=== PATIENT | female | born 1970 | race Two or more races ===

== ENCOUNTER → 2018-01-08 | Outpatient (REF) | payer OTHER ==
[~2018-01-08] MED LIST: CETI-176 PO; CETI5TAB22 PO; ESCI5TAB10 PO; FERR324T16 PO; LOR5 PO; METF-410 PO; MULTIVIT; OMEP-218 PO
== END ==
LOC: ZZSENDIN 12:00
PROVIDERS: ATTEND Student in an Organized Health Care Education/Training Program
DX: C54.1 Malignant neoplasm of endometrium (principal)
CPT/HCPCS: 88305

== ENCOUNTER 2018-01-15 17:23 | Inpatient (IN) | payer SELFPAY ==
[~2018-01-15] VITALS: Ht 162.6 cm; Wt 103.9 kg
[~2018-01-15 17:23] MED LIST changes: -CETI-176 PO; -FERR324T16 PO; -METF-410 PO
[2018-01-15] MEDS ORDERED: METF-410 PO (17:39)
[2018-01-15] MEDS ORDERED: FERR324T16 PO (17:39)
[2018-01-15] MEDS ORDERED: CETI-176 PO (17:40)
[2018-01-15] MEDS ORDERED: OMEP-218 PO (17:40)
--- NOTE | 2018-01-15 17:43 | ER Report ---
History and Physical Time Seen By MD: 17:42 Hx. of Stated Complaint: Pt recently diagnosed with uterine cancer. Pt experiencing sob. HPI/ROS CHIEF COMPLAINT: short of breath, abdominal distension and discomfort HISTORY OF PRESENT ILLNESS: This is a 47 year old female. She was sent to the hospital ER from the [facility]. She is short of breath, with a cough, and was 75% on room air. She has recently been diagnosed with endometrial cancer with ongoing vaginal bleeding and anemia. Also with recent diagnosis of diabetes. She is not having fevers. She denies chest pain, but feel tight. [facility] reports orthostatic hypotension as well. She is getting dizzy with position change. Has abdominal distension and discomfort. She denies nausea or vomiting. Normal bowel movements. No dysuria. Having vaginal bleeding as well as some discharge. REVIEW OF SYSTEMS: Constitutional: As above. Eyes: No vision changes. ENT: No sore throat. No congestion. Cardiovascular: As above. Respiratory: As above. Gastrointestinal: As above. Genitourinary: As above. Musculoskeletal: No muscle or joint pain. Skin: No rashes. Neurological: Generalized, but no focal weakness. No headache. Allergies: Coded Allergies: Penicillins (Verified Allergy, Intermediate, HIVES, 01/15/18) Sulfa (Sulfonamide Antibiotics) (Verified Allergy, Intermediate, "hives", 01/15/18) amoxicillin (Verified Allergy, Intermediate, HIVES, 01/15/18) cephalexin (Verified Allergy, Intermediate, HIVES, 01/15/18) clarithromycin (Verified Allergy, Intermediate, HIVES, 01/15/18) Uncoded Allergies: ENVIRONMENTAL ALLERGIES (Allergy, Mild, 07/05/08) Home Meds Reported Medications Cetirizine Hcl (ZYRTEC) 10 Mg Tablet, 10 MG PO QDAY, TAB 01/15/18 Omeprazole Magnesium (PRILOSEC OTC) 20 Mg Tablet.dr, 1 TAB PO QDAY, TAB 01/15/18 Ferrous Sulfate (FERROUS SULFATE) 324 Mg Tablet.dr, 324 MG PO QDAY 01/15/18 Metformin Hcl (METFORMIN HCL) 500 Mg Tablet, 1 TAB PO BID, TAB 01/15/18 Discontinued Reported Medications Acetaminophen/Hydrocodone (Lortab 5/500) 5 Mg/500 Mg Tab, 1 - 2 EA PO Q4H, 0 Refills 07/05/08 Escitalopram Oxalate (Lexapro) 5 Mg Tablet, 5 MG PO QODAY, 0 Refills 07/05/08 Cetirizine Hcl (Zyrtec) 5 Mg Tablet, 5 MG PO 07/05/08 [Multivit] No Conflict Check 07/05/08 Omeprazole Magnesium (Prilosec Otc) 20 Mg Tablet.dr, 20 MG PO QDAY 07/05/08 Reviewed Nurses Notes: Yes Hx Substance Use Disorder: No Hx Alcohol Use: No Constitutional Vital Sign - Last 24 Hours 01/15/18 01/15/18 01/15/18 01/15/18 17:29 17:31 17:35 17:38 Temp 97.8 Pulse 100 92 Resp 20 B/P (MAP) 136/63 136/63 (87) Pulse Ox 83 94 O2 Delivery Room Air O2 Flow Rate 3.0 01/15/18 01/15/18 01/15/18 01/15/18 17:53 18:00 18:08 18:23 Pulse 89 88 85 Resp 19 30 26 B/P (MAP) 118/63 (81) Pulse Ox 93 91 91 01/15/18 01/15/18 01/15/18 01/15/18 18:28 18:30 18:43 18:58 Pulse 87 ??? 95 Resp 21 14 B/P (MAP) 126/56 (79) Pulse Ox 90 93 01/15/18 01/15/18 01/15/18 01/15/18 19:00 19:13 19:28 19:30 Pulse 88 88 Resp 12 19 B/P (MAP) 111/81 (91) 121/66 (84) Pulse Ox 96 94 01/15/18 01/15/18 01/15/18 01/15/18 19:43 19:58 20:00 20:13 Pulse 90 91 90 Resp 20 40 40 B/P (MAP) 101/66 (78) Pulse Ox 92 95 92 01/15/18 01/15/18 01/15/18 01/15/18 20:13 20:28 20:30 20:43 Pulse 90 95 94 Resp 40 8 25 B/P (MAP) 118/70 (86) Pulse Ox 92 93 91 Physical Exam General Appearance: The patient is alert. Short of breath, on oxygen by nasal canula. No acute distress, but ill appearing. Eyes: Pupils are equal, round. No pallor, injection or icterus. ENT: Mucous membranes are moist. Normal oral mucosa. Posterior oropharynx is normal. Neck: Supple and non tender. Respiratory: Lungs are clear to auscultation. There are no retractions or accessory muscle use. Cardiovascular: Tachycardia, but a regular rhythm. No murmurs, gallops or rubs. Normal capillary refill. Gastrointestinal: Abdomen is soft, but has diffuse discomfort, no focal tenderness. Normal active bowel sounds. No costovertebral angle tenderness with percussion. Neurological: Alert and oriented x3. No focal neurologic deficits Skin: Warm and dry. Musculoskeletal: Extremities are nontender. No tenderness in palpation of the cervical, thoracic and lumbar spine. DIFFERENTIAL DIAGNOSIS: After history and physical exam, differential diagnosis was considered for patient with new onset shortness of breath and hypoxia, with her new diagnosis of endometrial cancer, would be concerned about pulmonary embolism. Also with anemia, anemia could be causing shortness of breath as well. Concern for pulmonary infectious process as well. Also noting abdominal fullness and tenderness. Based on endometrial cancer, we'll go ahead and get a CT scan of the abdomen as well to look for causes of these symptoms. Medical Decision Making Data Points Result Diagram: 01/15/18 1745 01/15/18 1745 Laboratory Hematology Test 01/15/18 17:45 01/15/18 19:50 Red Blood Count 5.39 M/uL (4.17-5.56) Mean Corpuscular Volume 66.3 fL (80.0-96.0) Mean Corpuscular Hemoglobin 19.7 pg (26.0-33.0) Mean Corpuscular Hemoglobin Concent 29.7 g/dL (32.0-36.0) Red Cell Distribution Width 20.2 % (11.5-14.5) Mean Platelet Volume 8.8 fL (7.2-11.1) Neutrophils (%) (Auto) 89.6 % (39.4-72.5) Lymphocytes (%) (Auto) 6.2 % (17.6-49.6) Monocytes (%) (Auto) 3.8 % (4.1-12.4) Eosinophils (%) (Auto) 0.0 % (0.4-6.7) Basophils (%) (Auto) 0.4 % (0.3-1.4) Nucleated RBC Relative Count (auto) 0.0 /100WBC Neutrophils # (Auto) 20.8 K/uL (2.0-7.4) Lymphocytes # (Auto) 1.4 K/uL (1.3-3.6) Monocytes # (Auto) 0.9 K/uL (0.3-1.0) Eosinophils # (Auto) 0.0 K/uL (0.0-0.5) Basophils # (Auto) 0.1 K/uL (0.0-0.1) Nucleated RBC Absolute Count (auto) 0.01 K/uL Peripheral Blood Smear Yes Y/N Prothrombin Time 16.0 seconds (12.0-14.4) Prothromb Time International Ratio 1.26 Activated Partial Thromboplast Time 30 seconds (23-35) Sodium Level 131 mmol/L (137-145) Potassium Level 5.3 mmol/L (3.5-5.0) Chloride Level 95 mmol/L (98-107) Carbon Dioxide Level 15 mmol/L (22-31) Blood Urea Nitrogen 23 mg/dl (7-18) Creatinine 1.00 mg/dl (0.52-1.04) Glomerular Filtration Rate Calc 59.7 Random Glucose 569 mg/dl (75-110) Calcium Level 8.9 mg/dl (8.4-10.2) Total Bilirubin 0.7 mg/dl (0.2-1.3) Aspartate Amino Transf (AST/SGOT) 18 U/L (0-35) Alanine Aminotransferase (ALT/SGPT) 22 U/L (0-56) Alkaline Phosphatase 255 U/L (0-126) Total Protein 6.8 gm/dl (6.3-8.2) Albumin 3.8 g/dl (3.5-5.0) Acetone, Qualitative Negative Urine Color Yellow Urine Clarity Cloudy Urine pH 5.0 pH (4.8-9.5) Urine Specific [place] 1.029 Urine Protein 30 mg/dL (NEGATIVE) Urine Glucose (UA) 500 mg/dL (NEGATIVE) Urine Ketones Trace mg/dL (NEGATIVE) Urine Blood Large (NEGATIVE) Urine Nitrite Negative (NEGATIVE) Urine Bilirubin Negative (NEGATIVE) Urine Urobilinogen Negative mg/dL (0.2-1.9) Urine Leukocyte Esterase Large (NEGATIVE) Urine RBC 300 /HPF (0-2/HPF) Urine WBC 135 /HPF (0-5/HPF) Urine Squamous Epithelial Cells Many /LPF (</=FEW) Urine Bacteria Negative /HPF (NONE-FEW) Urine Hyaline Casts Few /LPF (NONE-FEW) Urine Mucus Few /HPF (NONE-FEW) Chemistry Test 01/15/18 17:45 01/15/18 19:50 White Blood Count 23.2 k/uL (4.5-11.0) Red Blood Count 5.39 M/uL (4.17-5.56) Hemoglobin 10.6 g/dL (12.0-16.0) Hematocrit 35.7 % (34.0-47.0) Mean Corpuscular Volume 66.3 fL (80.0-96.0) Mean Corpuscular Hemoglobin 19.7 pg (26.0-33.0) Mean Corpuscular Hemoglobin Concent 29.7 g/dL (32.0-36.0) Red Cell Distribution Width 20.2 % (11.5-14.5) Platelet Count 146 K/uL (150-450) Mean Platelet Volume 8.8 fL (7.2-11.1) Neutrophils (%) (Auto) 89.6 % (39.4-72.5) Lymphocytes (%) (Auto) 6.2 % (17.6-49.6) Monocytes (%) (Auto) 3.8 % (4.1-12.4) Eosinophils (%) (Auto) 0.0 % (0.4-6.7) Basophils (%) (Auto) 0.4 % (0.3-1.4) Nucleated RBC Relative Count (auto) 0.0 /100WBC Neutrophils # (Auto) 20.8 K/uL (2.0-7.4) Lymphocytes # (Auto) 1.4 K/uL (1.3-3.6) Monocytes # (Auto) 0.9 K/uL (0.3-1.0) Eosinophils # (Auto) 0.0 K/uL (0.0-0.5) Basophils # (Auto) 0.1 K/uL (0.0-0.1) Nucleated RBC Absolute Count (auto) 0.01 K/uL Peripheral Blood Smear Yes Y/N Prothrombin Time 16.0 seconds (12.0-14.4) Prothromb Time International Ratio 1.26 Activated Partial Thromboplast Time 30 seconds (23-35) Glomerular Filtration Rate Calc 59.7 Calcium Level 8.9 mg/dl (8.4-10.2) Total Bilirubin 0.7 mg/dl (0.2-1.3) Aspartate Amino Transf (AST/SGOT) 18 U/L (0-35) Alanine Aminotransferase (ALT/SGPT) 22 U/L (0-56) Alkaline Phosphatase 255 U/L (0-126) Total Protein 6.8 gm/dl (6.3-8.2) Albumin 3.8 g/dl (3.5-5.0) Acetone, Qualitative Negative Urine Color Yellow Urine Clarity Cloudy Urine pH 5.0 pH (4.8-9.5) Urine Specific [place] 1.029 Urine Protein 30 mg/dL (NEGATIVE) Urine Glucose (UA) 500 mg/dL (NEGATIVE) Urine Ketones Trace mg/dL (NEGATIVE) Urine Blood Large (NEGATIVE) Urine Nitrite Negative (NEGATIVE) Urine Bilirubin Negative (NEGATIVE) Urine Urobilinogen Negative mg/dL (0.2-1.9) Urine Leukocyte Esterase Large (NEGATIVE) Urine RBC 300 /HPF (0-2/HPF) Urine WBC 135 /HPF (0-5/HPF) Urine Squamous Epithelial Cells Many /LPF (</=FEW) Urine Bacteria Negative /HPF (NONE-FEW) Urine Hyaline Casts Few /LPF (NONE-FEW) Urine Mucus Few /HPF (NONE-FEW) Coagulation Test 01/15/18 17:45 Prothrombin Time 16.0 seconds Prothromb Time International Ratio 1.26 Activated Partial Thromboplast Time 30 seconds Toxicology Test 01/15/18 17:45 Acetone, Qualitative Negative Urinalysis Test 01/15/18 19:50 Urine Color Yellow Urine Clarity Cloudy Urine pH 5.0 pH (4.8-9.5) Urine Specific [place] 1.029 Urine Protein 30 mg/dL (NEGATIVE) Urine Glucose (UA) 500 mg/dL (NEGATIVE) Urine Ketones Trace mg/dL (NEGATIVE) Urine Blood Large (NEGATIVE) Urine Nitrite Negative (NEGATIVE) Urine Bilirubin Negative (NEGATIVE) Urine Urobilinogen Negative mg/dL (0.2-1.9) Urine Leukocyte Esterase Large (NEGATIVE) Urine RBC 300 /HPF (0-2/HPF) Urine WBC 135 /HPF (0-5/HPF) Urine Squamous Epithelial Cells Many /LPF (</=FEW) Urine Bacteria Negative /HPF (NONE-FEW) Urine Hyaline Casts Few /LPF (NONE-FEW) Urine Mucus Few /HPF (NONE-FEW) EKG/Imaging EKG Interpretation 12 lead EKG: Rhythm: normal sinus rhythm, rate 90 [place]: normal QRS: normal ST segments: Nonspecific teeth flattening, no ST elevation or depression Imaging CT angiogram chest with contrast Indication: Shortness of breath, hypoxia and new diagnosis of endometrial cancer. Comparison: None available. Technique: Axial CT images are obtained through the chest after administration of 100 mL Isovue 370 IV contrast. Reformatted coronal and sagittal images were reviewed as well as coronal MIP images. One of the following dose optimization techniques was utilized in the performance of this exam: automated exposure control; adjustment of the mA and/ or kV according to the patient's size; or use of an iterative reconstruction technique. Specific details can be referenced in the facility's radiology CT exam operational policy. FINDINGS: Positive pulmonary emboli are present in the distal right main pulmonary artery extending into the segmental and subsegmental branches of the right lower lobe, right upper lobe and right middle lobe pulmonary arteries. The left sided, a arteries show a small amount of subsegmental emboli in the left lower lobe pulmonary arteries. Heart is upper limits normal for size without pericardial effusion. The left ventricle measures 4.4 cm and the right ventricle measures 4.9 cm. Aorta shows no aneurysm or dissection. The mediastinum and hilar regions show no enlarged lymph nodes or abnormal density. The lungs show mild dependent atelectasis. No consolidation, pleural effusion or pneumothorax. There is a 3 mm nodule in the right middle lobe on image #49. No other discrete nodules. Airways are clear. Bony structures show no acute fracture or discrete lesions. Chest wall shows no enlarged axillary lymph nodes or masses. Small amount of ascites. The upper abdomen is otherwise unremarkable. IMPRESSION: 1. Positive pulmonary emboli, right greater than left as described above. There may be mild right heart strain present. 2. Lungs show no acute abnormality. 3. 3 mm nodule in the right middle lobe. This too small characterize and could be postinflammatory. Suggest follow-up per Fleischner guidelines described below. I called report to WESLY GUEVARA at 01/15/2018 8:03 PM. Report Dictated By: Jim Gutierrez at 01/15/2018 7:[address] abdomen and pelvis with IV contrast Indication: Shortness breath, hypoxia and new diagnosis of endometrial carcinoma. Comparison: None available. . Technique: Axial CT images were obtained through the abdomen and pelvis during injection of nonionic iodinated intravenous contrast. Reformatted coronal and sagittal images were also obtained. One of the following dose optimization techniques was utilized in the performance of this exam: Automated exposure control; adjustment of the mA and/ or kV according to the patient's size; or use of an iterative reconstruction technique. Specific details can be referenced in the facility's radiology CT exam operational policy. Contrast: 100 ml of Isovue-370. IV contrast. Findings: Lower lung [place]: Bilateral pulmonary emboli are visualized mainly in the right side from the main right pulmonary artery into the segmental and subsegmental branches of the right lower lobe and small amount in the segmental and subsegmental branches of the left lower lobe. The apex of the right ventricle shows a question of a small 1.5 cm filling defect or nodule versus prominent ventricle. Liver: No focal parenchymal abnormality of the liver. Biliary: Gallbladder appears unremarkable as well as the intra and extra hepatic biliary system. Pancreas: Normal appearance. Spleen: Normal appearance. Adrenal glands: Unremarkable. Kidneys / retroperitoneum: No evidence of nephrolithiasis or hydronephrosis. Subcentimeter hypodensity in the right kidney is too small characterize and statistically tiny cyst. Bowel / peritoneum / mesenteries: Visualized gastrointestinal tract is within normal limits. The appendix is normal. Stomach is unremarkable. Small amount of ascites is present. No fluid collections, free air or areas of inflammation. Small umbilical hernia containing fat and some fluid. The central left abdomen does show a large heterogeneous mass measuring at least 18.7 x 21.1 x 14.7 cm. The right lower quadrant does show a heterogeneous mass measuring 6.9 x 5.7 cm. Both these masses do show heterogeneous enhancement. Lymph node assessment: No pathologic adenopathy identified. Pelvic structures: The endometrium is thickened, heterogeneous and irregular consistent patient's known endometrial carcinoma. The remaining pelvic structures visualized within normal limits. Vessels: No significant atherosclerotic calcifications seen throughout a nonaneurysmal abdominal aorta and branches. Musculoskeletal / Body wall: No acute or aggressive osseous abnormality. Bilateral pars defect L5 level causing mild anterior spondylolisthesis of L5 over S1 of 7 mm. IMPRESSION: 1. Large abdominal mass with a smaller mass in the right lower quadrant. 2. Abnormal endometrium consistent patient's known endometrial carcinoma. 3. Mild ascites. 4. Positive pulmonary emboli as described on the pulmonary angiogram done at same time. 5. Other chronic findings as above. 6.The apex of the right ventricle shows a question of a small 1.5 cm filling defect or nodule versus prominent ventricle. I called report to WESLY GUEVARA at 01/15/2018 8:04 PM. Report Dictated By: Jim Gutierrez at 01/15/2018 7:49 PM ED Course/Re-evaluation Clinical Indication for ER IV: Hydration, IV Access ED Course Reviewed lab results and imaging results with the patient. She has endometrial cancer, with masses and ascites in the abdomen. She has evidence of a urinary tract infection. She has new pulmonary embolism. Discussed with Dr. Agosto, and will admit to [facility] for further evaluation and management. Started on Lovenox in the ER. Will begin antibiotics on the floor. Decision to Disposition Date: Jan 15, 2018 Decision to Disposition Time: 20:31 Depart Departure Latest Vital Signs Vital Signs Date Time Temp Pulse Resp B/P (MAP) Pulse Ox O2 Delivery O2 Flow Rate FiO2 01/15/18 20:43 94 25 91 01/15/18 20:30 118/70 (86) 01/15/18 17:35 3.0 01/15/18 17:29 97.8 Room Air Impression: Primary Impression: Pulmonary embolism Additional Impressions: Urinary tract infection Endometrial cancer Condition: Condition Unchanged Disposition: Admitted from ER Referrals: [facility] MD (PCP) Problem Qualifiers Primary Impression: Pulmonary embolism Pulmonary embolism type: other Chronicity: acute Acute cor pulmonale presence: without acute cor pulmonale Qualified Codes: I26.99 - Other pulmonary embolism without acute cor pulmonale Additional Impressions: Urinary tract infection Urinary tract infection type: acute cystitis Hematuria presence: without hematuria Qualified Codes: N30.00 - Acute cystitis without hematuria WESLY GUEVARA MD Jan 15, 2018 17:43
[2018-01-15 18:08] LABS: INR 1.26; PLATELET COUNT, AUTOMATED 146 K/uL (150-450)
[2018-01-15] MEDS ORDERED: IOPAMIDOL 76% 100 ML INFUS BTL 100 ML ONE (18:30)
--- NOTE | 2018-01-15 18:51 | EKG ---
FACILITY: [facility] PATIENT NAME: NATALYA MAZA : [id number] MR: [id number] V: [id number] EXAM DATE: ORDERING PHYSICIAN: WESLY GUEVARA TECHNOLOGIST: KIMI Jiménez Reason : CARDIAC Blood Pressure : / mmHG Vent. Rate : 090 BPM Atrial Rate : 090 BPM P-R Int : 132 ms QRS Dur : 086 ms QT Int : 384 ms P-R-T Axes : 062 107 141 degrees QTc Int : 469 ms Normal sinus rhythm Possible Right ventricular hypertrophy Septal infarct , age undetermined T wave abnormality, consider lateral ischemia Abnormal ECG No previous ECGs available Confirmed by CASA LARA ([id number]) on 01/16/2018 6:33:23 AM Referred By: PAOLA Confirmed By:CASA LARA
--- NOTE | 2018-01-15 20:07 | RADIOLOGY IMAGING REPORT ---
FACILITY: [facility] [place] PATIENT NAME: Meggan Schroeder : 1970 MR: [id number] V: [id number] EXAM DATE: ORDERING PHYSICIAN: WESLY GUEVARA TECHNOLOGIST: Location: [facility] [place] Patient: Meggan Schroeder : 1970 Visit/Account:[id number] Date of Sevice: 01/15/2018 ADDENDUM #1 The apex of the right ventricle shows a question of a small 1.8 cm nodule/filling defect versus promi nent ventricle muscle. Report Dictated By: Jim Gutierrez at 01/15/2018 8:06 PM Report E-Signed By: Jim Gutierrez at 01/15/2018 8:[address] angiogram chest with contrast Indication: Shortness of breath, hypoxia and new diagnosis of endometrial cancer. Comparison: None available. Technique: Axial CT images are obtained through the chest after administration of 100 mL Isovue 370 I V contrast. Reformatted coronal and sagittal images were reviewed as well as coronal MIP images. One of the following dose optimization techniques was utilized in the performance of this exam: auto mated exposure control; adjustment of the mA and/or kV according to the patient's size; or use of an iterative reconstruction technique. Specific details can be referenced in the facility's radiology C T exam operational policy. FINDINGS: Positive pulmonary emboli are present in the distal right main pulmonary artery extending into the se gmental and subsegmental branches of the right lower lobe, right upper lobe and right middle lobe pul monary arteries. The left sided, a arteries show a small amount of subsegmental emboli in the left lo wer lobe pulmonary arteries. Heart is upper limits normal for size without pericardial effusion. The left ventricle measures 4.4 c m and the right ventricle measures 4.9 cm. Aorta shows no aneurysm or dissection. The mediastinum and hilar regions show no enlarged lymph nodes or abnormal density. The lungs show mild dependent atelectasis. No consolidation, pleural effusion or pneumothorax. There is a 3 mm nodule in the right middle lobe on image #49. No other discrete nodules. Airways are clear. Bony structures show no acute fracture or discrete lesions. Chest wall shows no enlarged axillary lym ph nodes or masses. Small amount of ascites. The upper abdomen is otherwise unremarkable. IMPRESSION: 1. Positive pulmonary emboli, right greater than left as described above. There may be mild right hea rt strain present. 2. Lungs show no acute abnormality. 3. 3 mm nodule in the right middle lobe. This too small characterize and could be postinflammatory. S uggest follow-up per Fleischner guidelines described below. I called report to WESLY GUEVARA at 01/15/2018 8:03 PM. FLEISCHNER SOCIETY FOLLOW-UP GUIDELINES FOR NEWLY DETECTED INCIDENTAL NODULES IN PERSONS 35 YEARS OF AGE OR OLDER. *THESE RECOMMENDATIONS DO NOT APPLY TO LUNG CANCER SCREENING, PATIENTS WITH IMMUNOSUPPRESSION , OR PA TIENTS WITH KNOWN PRIMARY MALIGNANCY. SOLITARY SOLID NODULES If nodule size is less than 6 mm: Low risk patient - no follow up needed High risk patient - Optional CT at 12 months. If nodule size is 6-8 mm: Low risk patient - follow up CT at 6-12 months, then consider CT at 18-24 months if no change. High risk patient - follow up CT at 6-12 months, then CT at 18-24 months if no change. If nodule size is greater than 8 mm: Low risk patient - Consider CT at 3, 9 months, and 24 months; or PET/CT, or tissue sampling, or a com bination thereof. High risk patient - Consider CT at 3, 9 months, and 24 months; or PET/CT, or tissue sampling, or a co mbination thereof. LOW RISK PATIENT: Minimal or absent history of tobacco use and of other known risk factors. HIGH RISK PATIENT: Tobacco use, family history of lung cancer, upper pulmonary lobe location of nodul e, presence of emphysema, pulmonary fibrosis, older age. Kai H, Malika DP, Emily JM, et al. Guidelines for Management of Incidental Pulmonary Nodules Dete cted on CT Images: From the Fleischner Society 2017. Radiology. Report Dictated By: Jim Gutierrez at 01/15/2018 7:40 PM Report E-Signed By: Jim Gutierrez at 01/15/2018 8:04 PM WSN:[id number]
--- NOTE | 2018-01-15 20:11 | RADIOLOGY IMAGING REPORT ---
FACILITY: [facility] - [place] PATIENT NAME: Meggan Schroeder : 1970 MR: [id number] V: [id number] EXAM DATE: ORDERING PHYSICIAN: WESLY GUEVARA TECHNOLOGIST: Location: [facility] - [place] Patient: Meggan Schroeder : 1970 Visit/Account:[id number] Date of Sevice: 01/15/2018 CT abdomen and pelvis with IV contrast Indication: Shortness breath, hypoxia and new diagnosis of endometrial carcinoma. Comparison: None available. . Technique: Axial CT images were obtained through the abdomen and pelvis during injection of nonioni c iodinated intravenous contrast. Reformatted coronal and sagittal images were also obtained. One of the following dose optimization techniques was utilized in the performance of this exam: Autom ated exposure control; adjustment of the mA and/or kV according to the patient's size; or use of an i terative reconstruction technique. Specific details can be referenced in the facility's radiology C T exam operational policy. Contrast: 100 ml of Isovue-370. IV contrast. Findings: Lower lung worley: Bilateral pulmonary emboli are visualized mainly in the right side from the main r ight pulmonary artery into the segmental and subsegmental branches of the right lower lobe and small amount in the segmental and subsegmental branches of the left lower lobe. The apex of the right ventr icle shows a question of a small 1.5 cm filling defect or nodule versus prominent ventricle. Liver: No focal parenchymal abnormality of the liver. Biliary: Gallbladder appears unremarkable as well as the intra and extra hepatic biliary system. Pancreas: Normal appearance. Spleen: Normal appearance. Adrenal glands: Unremarkable. Kidneys / retroperitoneum: No evidence of nephrolithiasis or hydronephrosis. Subcentimeter hypodensit y in the right kidney is too small characterize and statistically tiny cyst. Bowel / peritoneum / mesenteries: Visualized gastrointestinal tract is within normal limits. The appe ndix is normal. Stomach is unremarkable. Small amount of ascites is present. No fluid collections, free air or areas of inflammation. Small um bilical hernia containing fat and some fluid. The central left abdomen does show a large heterogeneous mass measuring at least 18.7 x 21.1 x 14.7 c m. The right lower quadrant does show a heterogeneous mass measuring 6.9 x 5.7 cm. Both these masses do show heterogeneous enhancement. Lymph node assessment: No pathologic adenopathy identified. Pelvic structures: The endometrium is thickened, heterogeneous and irregular consistent patient's known endometrial carcinoma. The remaining pelvic structures visualized within normal limits. Vessels: No significant atherosclerotic calcifications seen throughout a nonaneurysmal abdominal aort a and branches. Musculoskeletal / Body wall: No acute or aggressive osseous abnormality. Bilateral pars defect L5 lev el causing mild anterior spondylolisthesis of L5 over S1 of 7 mm. IMPRESSION: 1. Large abdominal mass with a smaller mass in the right lower quadrant. 2. Abnormal endometrium consistent patient's known endometrial carcinoma. 3. Mild ascites. 4. Positive pulmonary emboli as described on the pulmonary angiogram done at same time. 5. Other chronic findings as above. 6.The apex of the right ventricle shows a question of a small 1.5 cm filling defect or nodule versus prominent ventricle. I called report to WESLY GUEVARA at 01/15/2018 8:04 PM. Report Dictated By: Jim Gutierrez at 01/15/2018 7:49 PM Report E-Signed By: Jim Gutierrez at 01/15/2018 8:06 PM WSN:[id number]
[2018-01-15] MEDS ORDERED: ENOXAPARIN 100 MG/ML SYR SC ONE (20:30)
[2018-01-15 21:20] VITALS: BP 161/117
[2018-01-15] MEDS ORDERED: NS(*) 0.9% 1000 ML BAG 1,000 ML IV ONE ×2 (22:10)
[2018-01-15] MEDS ORDERED: INFLUENZA VIRUS VAC 0.5 ML SYR IM ONLY ONE (22:15)
--- NOTE | 2018-01-15 22:32 | History & Physical ---
History of Present Illness Chief Complaint Shortness of breath History of Present Illness This patient presented to the emergency room complaining of shortness of breath and was found to have a pulmonary embolism. She reports that she was diagnosed with endometrial cancer earlier today after have an endometrial biopsy last week. She has been in the process of trying to get established with oncology, but prefers to do this in [place] to be with family. She developed increasing shortness of breath a few days ago. This has now progressed to the point where she is dyspneic with minimal exertion. History Problems: (1) DMII (diabetes mellitus, type 2) (2) Iron (Fe) deficiency anemia (3) Endometrial cancer Status: Chronic Home Meds Reported Medications Cetirizine Hcl (ZYRTEC) 10 Mg Tablet, 10 MG PO QDAY, TAB 01/15/18 Omeprazole Magnesium (PRILOSEC OTC) 20 Mg Tablet.dr, 1 TAB PO QDAY, TAB 01/15/18 Ferrous Sulfate (FERROUS SULFATE) 324 Mg Tablet.dr, 324 MG PO QDAY 01/15/18 Metformin Hcl (METFORMIN HCL) 500 Mg Tablet, 1 TAB PO BID, TAB 01/15/18 Discontinued Reported Medications Acetaminophen/Hydrocodone (Lortab 5/500) 5 Mg/500 Mg Tab, 1 - 2 EA PO Q4H, 0 Refills 07/05/08 Escitalopram Oxalate (Lexapro) 5 Mg Tablet, 5 MG PO QODAY, 0 Refills 07/05/08 Cetirizine Hcl (Zyrtec) 5 Mg Tablet, 5 MG PO 07/05/08 [Multivit] No Conflict Check 07/05/08 Omeprazole Magnesium (Prilosec Otc) 20 Mg Tablet.dr, 20 MG PO QDAY 07/05/08 Allergies: Coded Allergies: Penicillins (Verified Allergy, Intermediate, HIVES, 01/15/18) Sulfa (Sulfonamide Antibiotics) (Verified Allergy, Intermediate, "hives", 01/15/18) amoxicillin (Verified Allergy, Intermediate, HIVES, 01/15/18) cephalexin (Verified Allergy, Intermediate, HIVES, 01/15/18) clarithromycin (Verified Allergy, Intermediate, HIVES, 01/15/18) Uncoded Allergies: ENVIRONMENTAL ALLERGIES (Allergy, Mild, 07/05/08) When Quit Tobacco?: quit in 1999 Hx Alcohol Use: No Hx Substance Use Disorder: No Review of Systems All Systems Reviewed/Normal: Yes, Except as Noted Respiratory: Shortness of Breath Gastrointestinal: Abdominal Pain Exam Vital Signs Vital Signs Date Time Temp Pulse Resp B/P (MAP) Pulse Ox O2 Delivery O2 Flow Rate FiO2 01/15/18 21:03 91 25 91 01/15/18 21:00 116/68 (84) 01/15/18 17:35 3.0 01/15/18 17:29 97.8 Room Air Neuro: No Gross deficits Eyes: PERRLA Cardiovascular: Regular Rate and Rhythm Respiratory: Clear to Auscultation GI: Other (Distended with tenderness in the lower abdomen.) Extremities: No Edema Integumentary: No Cyanosis Medical Decision Making Data Points Result Diagram: 01/15/18174401/15/181744 Item Value Date Time Lactate 2.7 mmol/L H 01/15/181744 EKG / Imaging Imaging CT chest and CT abdomen/pelvis reviewed. Assessment and Plan Problems: (1) Pulmonary embolism Status: Acute Assessment & Plan: She did present with increased shortness of breath. Her CT scan was positive for bilateral pulmonary emboli. She has been started on Lovenox, and should likely remain on this to facilitate the biopsies that she will likely need to further evaluate her cancer. (2) Lactic acidosis Assessment & Plan: She does have an elevated lactate level and her WBC is also elevated. There is no clear focus of infection. She also on metformin, which could be attributing. Given her cancer and recent biopsies, we have elected to cover her empirically until sepsis can be definitively ruled out. We have started her on Primaxin. Blood and urine cultures are pending. (3) Hyperglycemia due to type 2 diabetes mellitus Assessment & Plan: She does have a significantly elevated blood sugar. She had been on metformin, but this will need to be discontinued because of the lactic acidosis. We have started her on sliding scale level #2, but she will likely also require long acting insulin. (4) Endometrial cancer Status: Chronic Assessment & Plan: The pathology report returned today and was positive for endometrial adenocarcinoma. She also has two masses in the abdomen and significant ascites. (5) Iron (Fe) deficiency anemia Assessment & Plan: She is on chronic treatment with iron. Copies to: SHYAM MURILLO DO Venous Thromboembolism Antithrombotics Is Pt On Any Antithrombotics?: Yes Exam Sepsis Risk: No Definite Risk Problem Qualifiers (1) Pulmonary embolism: Pulmonary embolism type: other Chronicity: acute Acute cor pulmonale presence: without acute cor pulmonale Qualified Codes: I26.99 - Other pulmonary embolism without acute cor pulmonale CASA LARA DO Jan 15, 2018 22:32
[2018-01-15] MEDS ORDERED: IMIPENEM/CILASTATIN 500MG VIAL IVPB ONE (22:42)
[2018-01-15] MEDS: IMIPENEM/CILASTA(*) 500MG VIAL 500 MG in NS(*) 0.9% 100 ML BAG 100 ML IVPB SCH (23:00)
[2018-01-15] MEDS: INSULIN HUM LISPRO 100 UN/ML 3 ML VIAL SUBQ PRN (23:09)
[2018-01-16] MEDS: INSULIN HUM LISPRO 100 UN/ML 3 ML VIAL SUBQ PRN ×5 (01:14→21:32)
[2018-01-16] MEDS ORDERED: NS 3% 500 ML BAG 500 ML IV ONE (02:40)
[2018-01-16] MEDS ORDERED: NS 0.9% 500 ML VISIV BAG IV PRN (03:00)
[2018-01-16 03:04] VITALS: BP 114/97
[2018-01-16] MEDS ORDERED: NS(*) 0.9% 500 ML BAG 500 ML ONE (04:57)
[2018-01-16] MEDS: IMIPENEM/CILASTA(*) 500MG VIAL 500 MG in NS(*) 0.9% 100 ML BAG 100 ML IVPB SCH ×4 (04:58→22:39)
[2018-01-16 06:23] LABS: PLATELET COUNT, AUTOMATED 152 K/uL (150-450)
[2018-01-16 07:06] VITALS: BP 111/64
[2018-01-16] MEDS ORDERED: NS 0.9% 500 ML BAG IV PRN (07:10)
[2018-01-16] MEDS: FERROUS SULFATE 325 MG TAB PO SCH (08:41)
[2018-01-16] MEDS: ENOXAPARIN 100 MG/ML SYR SC SCH ×2 (08:42→21:26)
[2018-01-16 09:12] VITALS: Ht 162.6 cm; Wt 103.9 kg
[2018-01-16 10:48] VITALS: BP 114/68
[2018-01-16] MEDS ORDERED: PANTOPRAZOLE SOD 40 MG TABEC PO ONE (12:13)
[2018-01-16] MEDS: PANTOPRAZOLE SOD 40 MG TABEC PO SCH (12:17)
--- NOTE | 2018-01-16 13:37 | Medical Nutrition Therapy ---
Nutrition Anthropometrics Height (Inches): 64.00 Height (Calculated Centimeters: 162.354242 Weight (Pounds): 229 Weight (Calculated Kilograms): 103.873 BMI Calculated: 39.30 Edu Nutrition Score: Adequate Edu Nutrition Risk Score: 17 Dietary Referral Nutrition Risk Factors: Nutrition Risk Comment: Nutritional Diagnosis Past Medical History: Past medical history significant for T2DM, iron deficenciy anemia, and new diagnosis of endometrial cancer on 01/15/18. Nutritional Acuity: 1-High Nutrition Diagnosis: Increased Nutrient Needs Nutrition Etiology: Increased Nutrient Needs Nutrition Problem/Etiology/Sym: new dx of endometrial cancer. Energy Requirement: 2595 (kcal/day (25 kcal/kg)- [place] [address]. Jeor RMR (1995) AF 1.2, IF 1.3) Protein Requirement: 114 (g/day (1.1 g/kg)) Fluid Requirement: 2400 (mL/day (23 mL/kg)) Nutrition Intervention: Cont diet as ordered, Encourage intake Nutrition Monitoring & Eval Nutrition Goals: Eat 75-100% Meal Nutrition Follow-Up: Poor Intake RD Patient Assessment Time: [address] Assessment Type: RD Assessment Patient Nutrition Acuity: 1-High Follow Up Date: Jan 21, 2018 Nutritional Comment: 01/16 Pt admitted for pulmonary embolism with lactic acidosis. Per physician note, pt was diagnosed with endometrial cancer on 01/15/18.Pt currently on a diabetic diet with no intakes recorded. Grocery Buyer unable to assess pt in room at time of visit due to pt not feeling well. WBC 25.7, HGB 9.6, HCT 32.1, total prot 5.8, alb 3.0. Monitor pt intake. SIA FRAGA Jan 16, 2018 09:23
--- NOTE | 2018-01-16 14:56 | Hospitalist Progress Note ---
Subjective Progress Notes Subjective The patient is less short of breath today. Physical Exam Vital Signs Date Time Temp Pulse Resp B/P (MAP) Pulse Ox O2 Delivery O2 Flow Rate FiO2 01/16/18 12:18 102 01/16/18 10:48 98.3 22 114/68 (83) 94 Nasal Cannula 3.5 Intake and Output 01/17/18 06:59 Intake Total 770 ml Balance 770 ml Intake Oral 670 ml IV Total 100 ml # Voids 3 General Appearance: Alert, Awake, No Acute Distress Neuro: No Gross deficits Eyes: PERRLA Cardiovascular: Regular Rate and Rhythm Respiratory: Clear to Auscultation GI: Other (Obese, soft, nondistended, general discomfort with palpation.) Lymph: Cervical Nodes Benign Extremities: Warm, Perfused, Other (No edema. No palpable cord. No calf tenderness.) Integumentary: Skin Intact without Lesion / Mass Psych: Appropriate Mood & Affect Result Diagram: 01/16/18 0600 01/16/18 0600 Assessment and Plan Problems: (1) Pulmonary embolism Status: Acute Assessment & Plan: She did present with increased shortness of breath. Her CT scan was positive for bilateral pulmonary emboli. She has been started on Lovenox, and will remain on this to facilitate the biopsies that she will likely need to further evaluate her cancer. (2) Lactic acidosis Assessment & Plan: She did have an elevated lactate level and her WBC was also elevated. There is no clear focus of infection. She was also on metformin, which was held. Given her cancer and recent biopsies, we have elected to cover her empirically until sepsis can be definitively ruled out. We have started her on Primaxin. Blood and urine cultures are pending. (3) Hyperglycemia due to type 2 diabetes mellitus Assessment & Plan: She does have a significantly elevated blood sugar. She had been on metformin, but this will need to be discontinued because of the lactic acidosis. We have started her on sliding scale level #2, but she will likely also require long acting insulin. (4) Endometrial cancer Status: Chronic Assessment & Plan: The pathology report returned today and was positive for endometrial adenocarcinoma. She also has two masses in the abdomen and significant ascites. (5) Iron (Fe) deficiency anemia Assessment & Plan: She is on chronic treatment with iron. Time Spent on Plan of Care: < 30 min Exam Sepsis Risk: Sepsis Risk Problem Qualifiers (1) Pulmonary embolism: Pulmonary embolism type: other Chronicity: acute Acute cor pulmonale presence: without acute cor pulmonale Qualified Codes: I26.99 - Other pulmonary embolism without acute cor pulmonale TYRA MESSINA MD Jan 16, 2018 14:56
[2018-01-16 15:45] VITALS: BP 123/63
[2018-01-16 19:14] VITALS: BP 115/74
[2018-01-16] MEDS ORDERED: INSULIN GLARGINE 100 U/ML 3 ML PEN SUBQ SCH (21:00)
[2018-01-16 23:02] VITALS: BP 130/73
[2018-01-17 03:26] VITALS: BP 117/66
[2018-01-17] MEDS: IMIPENEM/CILASTA(*) 500MG VIAL 500 MG in NS(*) 0.9% 100 ML BAG 100 ML IVPB SCH ×4 (05:22→23:09)
[2018-01-17 06:13] LABS: PLATELET COUNT, AUTOMATED 170 K/uL (150-450)
[2018-01-17 08:07] VITALS: BP 125/74
[2018-01-17] MEDS: INSULIN HUM LISPRO 100 UN/ML 3 ML VIAL SUBQ PRN ×4 (08:24→20:48)
[2018-01-17] MEDS: ENOXAPARIN 100 MG/ML SYR SC SCH ×2 (08:24→20:49)
[2018-01-17] MEDS: FERROUS SULFATE 325 MG TAB PO SCH ×2 (08:24→21:54)
[2018-01-17] MEDS: PANTOPRAZOLE SOD 40 MG TABEC PO SCH (08:24)
[2018-01-17] MEDS: medroxyPROGES ACE 10 MG TAB PO SCH (11:43)
[2018-01-17 11:49] VITALS: BP 118/97
--- NOTE | 2018-01-17 12:05 | Hospitalist Progress Note ---
Subjective Progress Notes Subjective The patient reports some improvement in the SINCLAIR. She is still requiring supplemental O2. She is still having bloody vaginal discharge, that is unchanged from prior to start Lovenox. Physical Exam Vital Signs Date Time Temp Pulse Resp B/P (MAP) Pulse Ox O2 Delivery O2 Flow Rate FiO2 01/17/18 08:10 98 01/17/18 08:10 Nasal Cannula 01/17/18 08:07 98.5 30 125/74 (91) 94 5.0 General Appearance: Alert, Awake, Other (Mild to moderate work of breathing) Cardiovascular: Other (Borderline tachycardic. No m/r/g. regular.) Respiratory: Clear to Auscultation Result Diagram: 01/17/18 0501/17/18 0510 Assessment and Plan Problems: (1) Pulmonary embolism Status: Acute Assessment & Plan: She did present with increased shortness of breath and hypoxia. Her CT scan was positive for bilateral pulmonary emboli. She has been started on Lovenox, and will remain on this. SW has found help with getting the medication for the patient. HR is borderline tachycardic, BP stable. She is on 5 liters of O2. She is reporting improvement in the SINCLAIR. (2) Lactic acidosis Status: Resolved Assessment & Plan: She did have an elevated lactate level and her WBC was also elevated. There is no clear focus of infection. She was also on metformin, which was held. Given her cancer and recent biopsies, we have elected to cover her empirically until sepsis can be definitively ruled out. We have started her on Primaxin. Blood and urine cultures are pending. (3) Iron (Fe) deficiency anemia Assessment & Plan: Secondary to chronic vaginal bleeding since about October. The bleeding hasn't worsened with the start of Lovenox. Hgb relatively stable. She is on chronic treatment with iron orally. Will increase to twice daily and check a Ferritin tomorrow. She might benefit from IV iron. (4) Hyperglycemia due to type 2 diabetes mellitus Assessment & Plan: She does have a significantly elevated blood sugar. She had been on metformin, but this will need to be discontinued because of the lactic acidosis. We have started her on sliding scale level #2, and Lantus was started the night of 01/16. (5) Endometrial cancer Status: Chronic Assessment & Plan: The pathology report returned today and was positive for endometrial adenocarcinoma. She also has two masses in the abdomen and significant ascites. I spoke with Dr. Vu, and she recommended starting Medroxyprogesterone 20mg day for the bleeding. Exam Sepsis Risk: Sepsis Risk Problem Qualifiers (1) Pulmonary embolism: Pulmonary embolism type: other Chronicity: acute Acute cor pulmonale presence: without acute cor pulmonale Qualified Codes: I26.99 - Other pulmonary embolism without acute cor pulmonale CHAPO TERESA MD Jan 17, 2018 12:05
[2018-01-17 14:36] VITALS: BP 100/85
[2018-01-17 19:35] VITALS: BP 107/98
[2018-01-17] MEDS ORDERED: INSULIN GLARGINE 100 U/ML 3 ML PEN SUBQ SCH (21:00)
[2018-01-17 23:10] VITALS: BP 114/67
[2018-01-18] MEDS: IMIPENEM/CILASTA(*) 500MG VIAL 500 MG in NS(*) 0.9% 100 ML BAG 100 ML IVPB SCH (05:13)
[2018-01-18 05:16] VITALS: BP 104/63
[2018-01-18 07:31] VITALS: BP 107/75
[2018-01-18 07:45] LABS: PLATELET COUNT, AUTOMATED 230 K/uL (150-450)
[2018-01-18] MEDS: medroxyPROGES ACE 10 MG TAB PO SCH (08:57)
[2018-01-18] MEDS: PANTOPRAZOLE SOD 40 MG TABEC PO SCH (08:57)
[2018-01-18] MEDS: FERROUS SULFATE 325 MG TAB PO SCH ×2 (08:57→20:25)
[2018-01-18] MEDS: INSULIN HUM LISPRO 100 UN/ML 3 ML VIAL SUBQ PRN ×4 (08:58→20:26)
[2018-01-18] MEDS: ENOXAPARIN 100 MG/ML SYR SC SCH ×2 (08:58→20:25)
--- NOTE | 2018-01-18 10:07 | Hospitalist Progress Note ---
Subjective Progress Notes Subjective This patient was admitted for pulmonary embolism and possible sepsis. She had no acute events overnight. Patient Complains of: Cardiovascular: No: Chest Pain Respiratory: No: Shortness of Breath Physical Exam Vital Signs Date Time Temp Pulse Resp B/P (MAP) Pulse Ox O2 Delivery O2 Flow Rate FiO2 01/18/18 07:31 94 Nasal Cannula 3.0 01/18/18 07:31 98.2 93 28 107/75 (86) Intake and Output 01/19/18 07:00 Intake Total 120 ml Balance 120 ml Intake Oral 120 ml Neuro: No Gross deficits Eyes: PERRLA Cardiovascular: Regular Rate and Rhythm Respiratory: Clear to Auscultation Extremities: No Edema Integumentary: No Cyanosis Result Diagram: 01/18/18 0729 01/18/1829 Item Value Date Time Blood Culture - Preliminary Resulted 01/15/18 2100 Blood NO GROWTH AFTER 3 DAYS, REINCUBATED Blood Culture - Preliminary Resulted 01/15/184 Blood NO GROWTH AFTER 3 DAYS, REINCUBATED Urine Culture - Final Complete 01/15/18 1950 Clean Catch Midstream Ur CONTAMINATED URINE:... Assessment and Plan Problems: (1) Pulmonary embolism Status: Acute Assessment & Plan: She did present with increased shortness of breath and hypoxia. Her CT scan was positive for bilateral pulmonary emboli. She has been started on Lovenox, and will remain on this. SW has found help with getting the medication for the patient. (2) Lactic acidosis Status: Resolved Assessment & Plan: She did have an elevated lactate level and her WBC was also elevated. There is no clear focus of infection. She was also on metformin, which was held. Given her cancer and recent biopsies, we have elected to cover her empirically until sepsis can be definitively ruled out. We initially started her on empiric treatment with Primaxin. Blood and urine cultures are have been negative. We stopped antibiotics today. (3) Iron (Fe) deficiency anemia Assessment & Plan: Secondary to chronic vaginal bleeding since about October. Her iron therapy has been increased to twice daily. A ferritin level is pending. (4) Hyperglycemia due to type 2 diabetes mellitus Assessment & Plan: She did have a significantly elevated blood sugar at admission. She had been on metformin, but this will need to be discontinued because of the lactic acidosis. We have started her on sliding scale level #2 and Lantus. We again titrated her Lantus dose today. (5) Endometrial cancer Status: Chronic Assessment & Plan: The pathology report returned today and was positive for endometrial adenocarcinoma. She also has two masses in the abdomen and significant ascites. Dr. Vu (passenger car inspector) has recommended progesterone to decrease her risk of bleeding. Exam Sepsis Risk: Sepsis Risk Problem Qualifiers (1) Pulmonary embolism: Pulmonary embolism type: other Chronicity: acute Acute cor pulmonale presence: without acute cor pulmonale Qualified Codes: I26.99 - Other pulmonary embolism without acute cor pulmonale CASA LARA DO Jan 18, 2018 10:07
[2018-01-18 10:54] VITALS: BP 101/52
[2018-01-18 16:49] VITALS: BP 104/66
[2018-01-18] MEDS: DOCUSATE SODIUM 100 MG CAP PO SCH (20:24)
[2018-01-18] MEDS: INSULIN GLARGINE 100 U/ML 3 ML PEN SUBQ SCH (20:26)
[2018-01-18 20:39] VITALS: BP_SYST 104; BP_SYST 105; BP_DIAS 66; BP_DIAS 80
[2018-01-19 05:15] VITALS: BP 102/66
[2018-01-19] MEDS: PANTOPRAZOLE SOD 40 MG TABEC PO SCH (08:20)
[2018-01-19] MEDS: ENOXAPARIN 100 MG/ML SYR SC SCH ×2 (08:20→20:53)
[2018-01-19] MEDS: medroxyPROGES ACE 10 MG TAB PO SCH (08:20)
[2018-01-19] MEDS: FERROUS SULFATE 325 MG TAB PO SCH ×2 (08:20→20:52)
[2018-01-19] MEDS: DOCUSATE SODIUM 100 MG CAP PO SCH ×2 (08:20→20:52)
[2018-01-19] MEDS: INSULIN HUM LISPRO 100 UN/ML 3 ML VIAL SUBQ PRN ×4 (08:21→20:52)
--- NOTE | 2018-01-19 09:38 | Hospitalist Progress Note ---
Subjective Progress Notes Subjective The patient is on less O2. She is still having SINCLAIR. Physical Exam Vital Signs Date Time Temp Pulse Resp B/P (MAP) Pulse Ox O2 Delivery O2 Flow Rate FiO2 01/19/18 05:15 98.0 94 22 102/66 (78) 93 Oxy Mask 3.0 General Appearance: Alert, Awake, No Acute Distress Cardiovascular: Regular Rate and Rhythm Respiratory: Clear to Auscultation Result Diagram: 01/18/18 0729 01/18/18 0729 Assessment and Plan Problems: (1) Pulmonary embolism Status: Acute Assessment & Plan: She did present with increased shortness of breath and hypoxia. Her CT scan was positive for bilateral pulmonary emboli. She has been started on Lovenox, and will remain on this. SW has found help with getting the medication for the patient. HR is borderline tachycardic, BP stable. She is down to 0.5 liters of O2. She is reporting improvement in the SINCLAIR. (2) Lactic acidosis Status: Resolved Assessment & Plan: She did have an elevated lactate level and her WBC was also elevated. There is no clear focus of infection. She was also on metformin, which was held. Given her cancer and recent biopsies, we have elected to cover her empirically until sepsis can be definitively ruled out. We initially started her on empiric treatment with Primaxin. Blood and urine cultures are have been negative. We stopped antibiotics on 01/18. (3) Iron (Fe) deficiency anemia Assessment & Plan: Secondary to chronic vaginal bleeding since about October. Her iron therapy has been increased to twice daily. A ferritin level is pending. (4) Hyperglycemia due to type 2 diabetes mellitus Assessment & Plan: She did have a significantly elevated blood sugar at admission. She had been on metformin, but this will need to be discontinued because of the lactic acidosis. We have started her on sliding scale level #2 and Lantus. We again titrated her Lantus dose last night (5) Endometrial cancer Status: Chronic Assessment & Plan: The pathology report returned and was positive for endometrial adenocarcinoma. She also has two masses in the abdomen and significant ascites. Dr. Vu (tea bag machine tender) has recommended progesterone to decrease her the vaginal bleeding, which was started on 01/17. Exam Sepsis Risk: Sepsis Risk Problem Qualifiers (1) Pulmonary embolism: Pulmonary embolism type: other Chronicity: acute Acute cor pulmonale presence: without acute cor pulmonale Qualified Codes: I26.99 - Other pulmonary embolism without acute cor pulmonale CHAPO TERESA MD Jan 19, 2018 09:38
[2018-01-19 09:56] VITALS: BP 111/76
[2018-01-19 12:05] VITALS: BP 116/78
[2018-01-19 18:44] VITALS: BP 116/72
[2018-01-19] MEDS: INSULIN GLARGINE 100 U/ML 3 ML PEN SUBQ SCH (20:53)
[2018-01-19 23:30] VITALS: BP 106/67
[2018-01-20] VITALS (13 sets, daily range): BP systolic 109–129; BP diastolic 65–87
[2018-01-20 05:51] LABS: PLATELET COUNT, AUTOMATED 323 K/uL (150-450)
[2018-01-20] MEDS: PANTOPRAZOLE SOD 40 MG TABEC PO SCH (08:03)
[2018-01-20] MEDS: INSULIN HUM LISPRO 100 UN/ML 3 ML VIAL SUBQ PRN ×4 (08:11→21:05)
[2018-01-20] MEDS: ENOXAPARIN 100 MG/ML SYR SC SCH ×2 (08:15→21:04)
[2018-01-20] MEDS: DOCUSATE SODIUM 100 MG CAP PO SCH ×2 (08:15→21:03)
[2018-01-20] MEDS: medroxyPROGES ACE 10 MG TAB PO SCH (08:15)
[2018-01-20] MEDS: FERROUS SULFATE 325 MG TAB PO SCH ×2 (08:16→21:03)
[2018-01-20] MEDS ORDERED: BISACODYL 10 MG SUPP PR PRN (08:50)
[2018-01-20] MEDS: INSULIN GLARGINE 100 U/ML 3 ML PEN SUBQ SCH ×2 (08:58→21:04)
[2018-01-20] MEDS: POLYETHYLENE GLYCOL 17 GM PKT PO SCH ×2 (09:00→17:00)
--- NOTE | 2018-01-20 09:58 | Hospitalist Progress Note ---
Subjective Progress Notes Subjective The patient continues to have occasional chest pain. She has shortness of breath with exertion. Physical Exam Vital Signs Date Time Temp Pulse Resp B/P (MAP) Pulse Ox O2 Delivery O2 Flow Rate FiO2 01/20/18 08:20 86 01/20/18 08:20 98.4 98 24 109/70 (83) Nasal Cannula 0.5 Intake and Output 01/21/18 07:00 Intake Total 120 ml Balance 120 ml Intake Oral 120 ml General Appearance: Alert, Awake, No Acute Distress, Afebrile Neuro: No Gross deficits Eyes: PERRLA Cardiovascular: Other (Slightly tachy, regular.) Respiratory: Clear to Auscultation, Other (Mild shortness of breath.) GI: Other (Obese, soft, tender in the lower abdomen to palpation.) Extremities: Warm, Perfused, Other (No edema, nontender to palpation bilaterally.) Psych: Alert & Oriented X3, Appropriate Mood & Affect Result Diagram: 01/20/18 0540 01/18/18 0729 Assessment and Plan Problems: (1) Pulmonary embolism Status: Acute Assessment & Plan: She did present with increased shortness of breath and hypoxia. Her CT scan was positive for bilateral pulmonary emboli. She has been started on Lovenox, and will remain on this. SW has found help with getting the medication for the patient. HR is borderline tachycardic, BP stable. She is down to 0.5 liters of O2. She is reporting improvement in the SINCLAIR. (2) Lactic acidosis Status: Resolved Assessment & Plan: She did have an elevated lactate level and her WBC was also elevated. There was no clear focus of infection. She was also on metformin, which was held. Given her cancer and recent biopsies, we covered her empirically until sepsis was definitively ruled out. We initially started her on empiric treatment with Primaxin. Blood and urine cultures are have been negative. We stopped antibiotics on 01/18. (3) Iron (Fe) deficiency anemia Assessment & Plan: Secondary to chronic vaginal bleeding since about October. Her iron therapy has been increased to twice daily. A ferritin level is pending. (4) Hyperglycemia due to type 2 diabetes mellitus Assessment & Plan: She did have a significantly elevated blood sugar at admission. She had been on metformin, but this will need to be discontinued because of the lactic acidosis. We have started her on sliding scale level #2 and Lantus. We are titrating her Lantus dose as needed. (5) Endometrial cancer Status: Chronic Assessment & Plan: The pathology report returned and was positive for endometrial adenocarcinoma. She also has two masses in the abdomen and significant ascites. Dr. Vu (veterinarian laboratory animal care) has recommended progesterone to decrease her the vaginal bleeding, which was started on 01/17. Time Spent on Plan of Care: < 30 min Exam Sepsis Risk: No Definite Risk Problem Qualifiers (1) Pulmonary embolism: Pulmonary embolism type: other Chronicity: acute Acute cor pulmonale presence: without acute cor pulmonale Qualified Codes: I26.99 - Other pulmonary embolism without acute cor pulmonale TYRA MESSINA MD Jan 20, 2018 09:58
[2018-01-20] MEDS: MAGNESIUM HYDROXIDE* 30ML UDCP PO PRN (22:31)
[2018-01-21] VITALS (7 sets, daily range): BP systolic 105–122; BP diastolic 57–91
[2018-01-21 06:02] LABS: PLATELET COUNT, AUTOMATED 378 K/uL (150-450)
[2018-01-21] MEDS: PANTOPRAZOLE SOD 40 MG TABEC PO SCH (08:33)
[2018-01-21] MEDS: medroxyPROGES ACE 10 MG TAB PO SCH (08:33)
[2018-01-21] MEDS: INSULIN HUM LISPRO 100 UN/ML 3 ML VIAL SUBQ PRN ×4 (08:33→21:16)
[2018-01-21] MEDS: DOCUSATE SODIUM 100 MG CAP PO SCH ×2 (08:33→21:13)
[2018-01-21] MEDS: FERROUS SULFATE 325 MG TAB PO SCH ×2 (08:33→21:13)
[2018-01-21] MEDS: INSULIN GLARGINE 100 U/ML 3 ML PEN SUBQ SCH ×2 (08:34→21:13)
[2018-01-21] MEDS: MAGNESIUM HYDROXIDE* 30ML UDCP PO PRN (08:34)
[2018-01-21] MEDS: ENOXAPARIN 100 MG/ML SYR SC SCH ×2 (08:34→21:13)
[2018-01-21] MEDS: POLYETHYLENE GLYCOL 17 GM PKT PO SCH (09:28)
--- NOTE | 2018-01-21 12:52 | Hospitalist Progress Note ---
Subjective Progress Notes Subjective She reports some congestion following the PRBC transfusion, but overall improved. Physical Exam Vital Signs Date Time Temp Pulse Resp B/P (MAP) Pulse Ox O2 Delivery O2 Flow Rate FiO2 01/21/18 11:31 83 01/21/18 10:49 98.2 97 24 122/80 (94) Nasal Cannula 1.0 Intake and Output 01/22/18 07:00 Intake Total 120 ml Balance 120 ml Intake Oral 120 ml # Voids 1 # Bowel Movements 1 General Appearance: Alert, Awake Cardiovascular: Regular Rate and Rhythm Respiratory: Other (Fairly clear) GI: Other (obese/soft) Extremities: Warm, Perfused Psych: Alert & Oriented X3 Result Diagram: 01/21/18 0549 01/21/18 0549 Assessment and Plan Problems: (1) Pulmonary embolism Status: Acute Assessment & Plan: She did present with increased shortness of breath and hypoxia. Her CT scan was positive for bilateral pulmonary emboli. She has been started on Lovenox and will remain on this until she is able to have surgical care for her endometrial cancer (hopefully within the next few weeks). Social Work has found help with getting the Lovenox for the patient. She is requiring minimal O2. She is reporting improvement in the [place]. (2) Lactic acidosis Status: Resolved Assessment & Plan: She did have an elevated lactate level and her WBC was also elevated. There was no clear focus of infection. She was also on metformin, which was held. Given her cancer and recent biopsies, we covered her empirically until sepsis was definitively ruled out. We initially started her on empiric treatment with Primaxin. Blood and urine cultures are have been negative. We stopped antibiotics on 01/18. (3) Iron (Fe) deficiency anemia Assessment & Plan: Secondary to chronic vaginal bleeding since about October. Her iron therapy has been increased to twice daily. Her ferritin level is in normal range at 99. (4) Hyperglycemia due to type 2 diabetes mellitus Assessment & Plan: She did have a significantly elevated blood sugar at admission. She had been on metformin, but this will need to be discontinued because of the lactic acidosis. We have started her on sliding scale level #2 and Lantus. We are titrating her Lantus dose as needed. (5) Endometrial cancer Status: Chronic Assessment & Plan: The pathology report returned and was positive for endometrial adenocarcinoma. She also has two masses in the abdomen and significant ascites. Dr. Vu (weather teacher) has recommended progesterone to decrease her vaginal bleeding - this was started on 01/17. We are trying to find her PLASTIC JIG AND FIXTURE BUILDER Oncology to see as soon as possible. Exam Sepsis Risk: No Definite Risk Problem Qualifiers (1) Pulmonary embolism: Pulmonary embolism type: other Chronicity: acute Acute cor pulmonale presence: without acute cor pulmonale Qualified Codes: I26.99 - Other pulmonary embolism without acute cor pulmonale JEROME MESSINA MD Jan 21, 2018 12:52
--- NOTE | 2018-01-21 14:45 | Medical Nutrition Therapy ---
Nutrition Anthropometrics Height (Inches): 64.00 Height (Calculated Centimeters: 162.866504 Weight (Pounds): 229 Weight (Calculated Kilograms): 103.873 BMI Calculated: 39.30 Edu Nutrition Score: Adequate Edu Nutrition Risk Score: 21 Dietary Referral Nutrition Risk Factors: Nutrition Risk Comment: Nutritional Diagnosis Nutritional Risk Acuity 3: Cancer Nutritional Risk Acuity 4: Good Appetite Past Medical History: Past medical history significant for T2DM, iron deficenciy anemia, and new diagnosis of endometrial cancer on 01/15/18. Nutritional Acuity: 3-Mild Nutrition Diagnosis: Increased Nutrient Needs Nutrition Etiology: Increased Nutrient Needs Nutrition Problem/Etiology/Sym: new dx of endometrial cancer. Energy Requirement: 2595 (kcal/day (25 kcal/kg)- [place] St. Jeor RMR (1995) AF 1.2, IF 1.3) Protein Requirement: 114 (g/day (1.1 g/kg)) Fluid Requirement: 2400 (mL/day (23 mL/kg)) Diet Type: Diabetic Nutrition Intervention: Cont diet as ordered, Encourage intake Nutrition Monitoring & Eval Nutrition Goals: Eat 75-100% Meal Nutrition Follow-Up: Good Intake RD Patient Assessment Time: [address] Assessment Type: RD Re-Assessment Patient Nutrition Acuity: 3-Mild Follow Up Date: Jan 24, 2018 Nutritional Comment: 01/16 Pt admitted for pulmonary embolism with lactic acidosis. Per physician note, pt was diagnosed with endometrial cancer on 01/15/18.Pt currently on a diabetic diet with no intakes recorded. Cashier And Waiter/Waitress unable to assess pt in room at time of visit due to pt not feeling well. WBC 25.7, HGB 9.6, HCT 32.1, total prot 5.8, alb 3.0. Monitor pt intake. 01/21 Per physician note pt experiencing some chest pain. Pt remains on a diabetic diet consuming 100% of all meals. HGB 10.8, total prot 5.4, alb 2.9. Monitor intake and progress. SIA FRAGA Jan 21, 2018 08:55
[2018-01-22 06:51] LABS: PLATELET COUNT, AUTOMATED 440 K/uL (150-450)
[2018-01-22 07:24] VITALS: BP 102/63
[2018-01-22] MEDS: PANTOPRAZOLE SOD 40 MG TABEC PO SCH (08:01)
[2018-01-22] MEDS: INSULIN HUM LISPRO 100 UN/ML 3 ML VIAL SUBQ PRN ×4 (08:05→21:09)
[2018-01-22] MEDS: POLYETHYLENE GLYCOL 17 GM PKT PO SCH ×2 (09:00→12:33)
[2018-01-22] MEDS: INSULIN GLARGINE 100 U/ML 3 ML PEN SUBQ SCH ×2 (09:07→21:09)
[2018-01-22] MEDS: ENOXAPARIN 100 MG/ML SYR SC SCH ×2 (09:07→21:09)
[2018-01-22] MEDS: DOCUSATE SODIUM 100 MG CAP PO SCH ×2 (09:08→21:09)
[2018-01-22] MEDS: FERROUS SULFATE 325 MG TAB PO SCH ×2 (09:08→21:09)
[2018-01-22] MEDS: medroxyPROGES ACE 10 MG TAB PO SCH (09:10)
--- NOTE | 2018-01-22 10:11 | Hospitalist Progress Note ---
Subjective Progress Notes Subjective She has complaints of weakness today. Patient Complains of: Cardiovascular: No: Chest Pain Respiratory: No: Shortness of Breath Gastrointestinal: Other (abdominal pain) Physical Exam Vital Signs Date Time Temp Pulse Resp B/P (MAP) Pulse Ox O2 Delivery O2 Flow Rate FiO2 01/22/18 07:24 97.8 102/63 (76) 94 Room Air 01/22/18 04:35 0.5 01/21/18 22:56 102 20 Intake and Output 01/23/18 07:00 Intake Total 120 ml Balance 120 ml Intake Oral 120 ml General Appearance: Alert, Awake, No Acute Distress, Afebrile Neuro: No Gross deficits Cardiovascular: Regular Rate and Rhythm Respiratory: No Respiratory Distress, Clear to Auscultation GI: Other (tenderness noted upon palpation to left lower quad) Psych: Alert & Oriented X3, Appropriate Mood & Affect Result Diagram: 01/22/1848 01/22/18 0548 Assessment and Plan Problems: (1) Pulmonary embolism Status: Acute Assessment & Plan: She did present with increased shortness of breath and hypoxia. Her CT scan was positive for bilateral pulmonary emboli. She has been started on Lovenox and will remain on this until she is able to have surgical care for her endometrial cancer (hopefully within the next few weeks). Social Work has found help with getting the Lovenox for the patient. She is requiring minimal O2. She is reporting improvement in the [place]. She has complaints of weakness today. We will order PT/OT evaluation. (2) Lactic acidosis Status: Resolved Assessment & Plan: She did have an elevated lactate level and her WBC was also elevated. There was no clear focus of infection. She was also on metformin, which was held. Given her cancer and recent biopsies, we covered her empirically until sepsis was definitively ruled out. We initially started her on empiric treatment with Primaxin. Blood and urine cultures are have been negative. We stopped antibiotics on 01/18. (3) Iron (Fe) deficiency anemia Assessment & Plan: Secondary to chronic vaginal bleeding since about October. Her iron therapy has been increased to twice daily. Her ferritin level is in normal range at 99. (4) Hyperglycemia due to type 2 diabetes mellitus Assessment & Plan: She did have a significantly elevated blood sugar at admission. She had been on metformin, but this will need to be discontinued because of the lactic acidosis. We have started her on sliding scale level #2 and Lantus. We are titrating her Lantus dose as needed. (5) Endometrial cancer Status: Chronic Assessment & Plan: The pathology report returned and was positive for endometrial adenocarcinoma. She also has two masses in the abdomen and significant ascites. Dr. Vu (speck dyer) has recommended progesterone to decrease her vaginal bleeding - this was started on 01/17. She has an appointment to see [place] [facility]URO OPHTHALMOLOGIST oncology February 07. Exam Sepsis Risk: No Definite Risk Problem Qualifiers (1) Pulmonary embolism: Pulmonary embolism type: other Chronicity: acute Acute cor pulmonale presence: without acute cor pulmonale Qualified Codes: I26.99 - Other pulmonary embolism without acute cor pulmonale SHERON HALLP Jan 22, 2018 10:11
[2018-01-22 16:36] VITALS: BP 100/62
[2018-01-22 18:49] VITALS: BP 107/63
[2018-01-22 22:35] VITALS: BP 119/70
[2018-01-23 05:45] LABS: PLATELET COUNT, AUTOMATED 461 K/uL (150-450)
[2018-01-23 07:07] VITALS: BP 106/71
[2018-01-23] MEDS: PANTOPRAZOLE SOD 40 MG TABEC PO SCH (08:05)
[2018-01-23] MEDS: FERROUS SULFATE 325 MG TAB PO SCH (09:26)
[2018-01-23] MEDS: POLYETHYLENE GLYCOL 17 GM PKT PO SCH (09:26)
[2018-01-23] MEDS: ENOXAPARIN 100 MG/ML SYR SC SCH (09:29)
[2018-01-23] MEDS: INSULIN GLARGINE 100 U/ML 3 ML PEN SUBQ SCH (09:30)
[2018-01-23] MEDS: DOCUSATE SODIUM 100 MG CAP PO SCH (09:30)
[2018-01-23] MEDS: medroxyPROGES ACE 10 MG TAB PO SCH (09:31)
[2018-01-23] MEDS ORDERED: PER PO (11:14)
[2018-01-23] MEDS ORDERED: ENOX100D5 SC (11:14)
[2018-01-23] MEDS ORDERED: MEDR10TA65 PO (11:14)
[2018-01-23] MEDS ORDERED: INSU100I30 SUBQ (11:14)
--- NOTE | 2018-01-23 11:22 | Hospitalist Depart ---
Discharge Summary Reason for Hosp/Final Diag: (1) Pulmonary embolism Status: Acute Hospital Course & Plan: She did present with increased shortness of breath and hypoxia. Her CT scan was positive for bilateral pulmonary emboli. She has been started on Lovenox and will remain on this until she is able to have surgical care for her endometrial cancer (hopefully within the next few weeks). Social Work has found help with getting the Lovenox for the patient. She is not requiring oxygen at this time. She is reporting improvement in the [place]. (2) Lactic acidosis Status: Resolved Hospital Course & Plan: She did have an elevated lactate level and her WBC was also elevated. There was no clear focus of infection. She was also on metformin, which has been stopped. Given her cancer and recent biopsies, we covered her empirically until sepsis was definitively ruled out. We initially started her on empiric treatment with Primaxin. Blood and urine cultures are have been negative. We stopped antibiotics on 01/18. (3) Iron (Fe) deficiency anemia Hospital Course & Plan: Secondary to chronic vaginal bleeding since about October. Her iron therapy has been increased to twice daily. Her ferritin level is in normal range at 99. (4) Hyperglycemia due to type 2 diabetes mellitus Hospital Course & Plan: She did have a significantly elevated blood sugar at admission. She had been on metformin, but this will need to be discontinued because of the lactic acidosis. We have started her on sliding scale level #2 and Lantus. She will go home with Lantus. (5) Endometrial cancer Status: Chronic Hospital Course & Plan: The pathology report returned and was positive for endometrial adenocarcinoma. She also has two masses in the abdomen and significant ascites. Dr. Vu (reticle printer) has recommended progesterone to decrease her vaginal bleeding - this was started on 01/17. She has an appointment to see [place] ORTHOTIC TECHNICIAN oncology February 07. Departure Latest Vital Signs Vital Signs 01/22/18 01/23/18 04:35 07:07 Temp 98.6 Pulse 103 Resp 20 B/P (MAP) 106/71 (83) Pulse Ox 92 O2 Delivery Room Air O2 Flow Rate 0.5 Weight (Pounds): 229 Result Diagram: 01/23/1852101/23/18521 Condition: Improved Discharge: Home, Self Care Discharge Instructions Home Meds Active Scripts Enoxaparin Sodium (LOVENOX) 100 Mg/1 Ml Disp.syrin, 100 MG SC Q12H, #60 SYR Prov:SHERON HALL [facility] 01/23/18 Insulin Glargine 100 Un/Ml Pen (LANTUS SOLOSTAR PEN) 100 Unit/1 Ml Insuln.pen, 15 UNIT SUBQ BID, #3 UNIT please dispense 3 pens Prov:SHERON HALL [facility] 01/23/18 Oxycodone/Acetaminophen (OXYCODONE/ACETAMINOPHEN 5MG/325 MG) 5 Mg/325 Mg Tab, 1 TAB PO Q6H Y for PAIN, #30 TAB Prov:SHERON HALL [facility] 01/23/18 Medroxyprogesterone Acetate (MEDROXYPROGESTERONE ACETATE) 10 Mg Tablet, 20 MG PO QDAY, #30 TAB Please give 30 day supply Prov:SHERON HALL [facility] 01/23/18 Reported Medications Cetirizine Hcl (ZYRTEC) 10 Mg Tablet, 10 MG PO QDAY, TAB 01/15/18 Omeprazole Magnesium (PRILOSEC OTC) 20 Mg Tablet.dr, 1 TAB PO QDAY, TAB 01/15/18 Ferrous Sulfate (FERROUS SULFATE) 324 Mg Tablet.dr, 324 MG PO QDAY 01/15/18 Metformin Hcl (METFORMIN HCL) 500 Mg Tablet, 1 TAB PO BID, TAB 01/15/18 Diet: Diabetic Activity: As Tolerated Copies to: SHYAM MURILLO DO Venous Thromboembolism Antithrombotics Is Pt On Any Antithrombotics?: Yes Problem Qualifiers (1) Pulmonary embolism: Pulmonary embolism type: other Chronicity: acute Acute cor pulmonale presence: without acute cor pulmonale Qualified Codes: I26.99 - Other pulmonary embolism without acute cor pulmonale SHERON HALL [place] [facility] Jan 23, 2018 11:22
[2018-01-23] MEDS: INSULIN HUM LISPRO 100 UN/ML 3 ML VIAL SUBQ PRN ×2 (12:09→16:35)
== END 2018-01-23 18:00 | disposition home or self-care (01) | DRG 176 ==
LOC: ER 17:49 → MED 20:44
PROVIDERS: ADMIT Family Medicine; ATTEND Family Medicine
PROC: 30233N1 Transfusion of Nonautologous Red Blood Cells into Peripheral Vein, Percutaneous Approach (ICD-10-PCS; principal; 2018-01-15)
DX: I26.99 Other pulmonary embolism without acute cor pulmonale (principal); E87.2 Acidosis; R18.0 Malignant ascites; N30.00 Acute cystitis without hematuria; D50.0 Iron deficiency anemia secondary to blood loss (chronic); E11.65 Type 2 diabetes mellitus with hyperglycemia; C54.1 Malignant neoplasm of endometrium; I95.1 Orthostatic hypotension; N93.9 Abnormal uterine and vaginal bleeding, unspecified; R09.02 Hypoxemia; Z79.4 Long term (current) use of insulin; Z88.0 Allergy status to penicillin; Z88.2 Allergy status to sulfonamides; Z88.8 Allergy status to other drugs, medicaments and biological substances
CPT/HCPCS: 36415; 36416; 71275; 74177; 81001; 82009; 82040; 82247; 82310; 82374; 82435; 82565; 82728; 82947; 82948; 83540; 83550; 83605; 84075; 84132; 84155; 84295; 84450; 84460; 84520; 85025; 85610; 85730; 86850; 86900; 86901; 86920; 87040; 87088; 93005; 96372; 97162; 97165; 99285; J0743; J1650; J1815; J7030; J7040; J7050; P9016; Q9967

== ENCOUNTER → 2018-09-18 | Outpatient (CLI) | payer MEDICAID ==
[2018-01-16 09:12] VITALS: BMI 39.3
[~2018-09-18] MED LIST changes: +ACET-1966 PO; +CETI-176 PO; +CIPR-344 PO; +ENOX100D5 SC; +FERR324T16 PO; +GABA-549 PO; +HYDR-653 PO; +INSU100I30 SUBQ; +MEDR10TA65 PO; +METF-450 PO; +METF500T4 PO; +MUPI15CR2 TP; +ONDA4TAB97 PO; +ONDA8TAB97 PO; +OXYGENHOME INH; +PER PO; +POTA-28 PO; +POTA20TA94 PO; +PROC10TA4 PO; +PROC25SU3; +RIVA20TA PO
== END ==
LOC: LAB 14:05
PROVIDERS: ATTEND Emergency Medicine
DX: R30.0 Dysuria (principal); B96.89 Other specified bacterial agents as the cause of diseases classified elsewhere
CPT/HCPCS: 87077; 87088; 87186

== ENCOUNTER → 2018-09-20 | Outpatient (CLI) | payer MEDICAID ==
[2018-01-16 09:12] VITALS: BMI 39.3
== END ==
LOC: LAB 10:51
PROVIDERS: ATTEND Emergency Medicine
DX: K21.9 Gastro-esophageal reflux disease without esophagitis (principal)
CPT/HCPCS: 87338

== ENCOUNTER → 2018-10-21 | Outpatient (CLI) | payer MEDICAID ==
[2018-01-16 09:12] VITALS: BMI 39.3
[~2018-10-21] MED LIST changes: +OMEP-125 PO; +PREG75CA60 PO; +RANI-366 PO
[2018-10-21 10:22] LABS: PLATELET COUNT, AUTOMATED 275 K/uL (150-450)
[2018-10-21 10:35] LABS: LDL CHOLESTEROL 92 mg/dl
== END ==
LOC: LAB 09:47
PROVIDERS: ATTEND Emergency Medicine
DX: E11.9 Type 2 diabetes mellitus without complications (principal); C54.1 Malignant neoplasm of endometrium; E83.51 Hypocalcemia
CPT/HCPCS: 36415; 82040; 82247; 82306; 82310; 82374; 82435; 82465; 82565; 82607; 82947; 83036; 83718; 84075; 84132; 84155; 84295; 84450; 84460; 84478; 84520; 85025; 86304

== ENCOUNTER → 2018-11-21 | Outpatient (CLI) | payer MEDICAID ==
[2018-01-16 09:12] VITALS: BMI 39.3
[~2018-11-21] MED LIST changes: +BLOO-1318 MC; +BLOO-960 MC; +DULO60CA7 PO; +ISOP1TOW MC; +LANC-714 MC; +MILN1TAB2 PO
== END ==
LOC: RESP 20:11
PROVIDERS: ATTEND Emergency Medicine
DX: G47.33 Obstructive sleep apnea (adult) (pediatric) (principal); G47.36 Sleep related hypoventilation in conditions classified elsewhere; G47.61 Periodic limb movement disorder

== ENCOUNTER → 2018-12-01 | Outpatient (CLI) | payer MEDICAID ==
[2018-01-16 09:12] VITALS: BMI 39.3
== END ==
LOC: US 00:57
PROVIDERS: ATTEND Nurse Practitioner Adult Health
DX: I27.20 Pulmonary hypertension, unspecified (principal)
CPT/HCPCS: 93306

== ENCOUNTER → 2018-12-23 | Outpatient (CLI) | payer MEDICAID ==
[2018-01-16 09:12] VITALS: BMI 39.3
[~2018-12-23] MED LIST changes: +CHOL200038 PO
[2018-12-23 10:59] LABS: PLATELET COUNT, AUTOMATED 286 K/uL (150-450)
== END ==
LOC: LAB 10:32
PROVIDERS: ATTEND Emergency Medicine
DX: E11.9 Type 2 diabetes mellitus without complications (principal)
CPT/HCPCS: 36415; 82040; 82247; 82306; 82310; 82374; 82435; 82565; 82607; 82947; 83036; 84075; 84132; 84155; 84295; 84450; 84460; 84520; 85025

== ENCOUNTER → 2019-01-26 | Outpatient (CLI) | payer MEDICAID ==
[2018-01-16 09:12] VITALS: BMI 39.3
[~2019-01-26] MED LIST changes: +CYAN500T38 PO
== END ==
LOC: LAB 17:38
DX: C54.1 Malignant neoplasm of endometrium (principal)
CPT/HCPCS: 36415; 86304

== ENCOUNTER → 2019-04-07 | Outpatient (CLI) | payer MEDICAID ==
[2018-01-16 09:12] VITALS: BMI 39.3
[~2019-04-07] MED LIST changes: +AZIT-1 PO; +COLE3.756 PO; -CYAN500T38 PO; +CYAN500T39 PO; +DIPH-1 PO; -OMEP-125 PO; +OMEP-126 PO; -RANI-366 PO; +RANI-54 PO
== END ==
LOC: LAB 16:39
PROVIDERS: ATTEND Emergency Medicine
DX: E11.9 Type 2 diabetes mellitus without complications (principal); E55.9 Vitamin D deficiency, unspecified
CPT/HCPCS: 82306; 82607; 83036

== ENCOUNTER → 2019-04-07 | Outpatient (CLI) | payer MEDICAID ==
[2018-01-16 09:12] VITALS: BMI 39.3
== END ==
LOC: LAB 17:08
PROVIDERS: ATTEND Physician Assistant
DX: C54.1 Malignant neoplasm of endometrium (principal)
CPT/HCPCS: 82565

== ENCOUNTER → 2019-04-07 | Outpatient (CLI) | payer MEDICAID ==
[2018-01-16 09:12] VITALS: BMI 39.3
== END ==
LOC: LAB 17:04
PROVIDERS: ATTEND Nurse Practitioner Family
DX: C54.1 Malignant neoplasm of endometrium (principal)
CPT/HCPCS: 36415; 86304

== ENCOUNTER → 2019-04-20 | Outpatient (CLI) | payer MEDICAID ==
[2018-01-16 09:12] VITALS: BMI 39.3
[~2019-04-20] MED LIST changes: +IOPAMIDOL 76% 100 ML INFUS BTL 100 ML ONE
--- NOTE | 2019-04-20 12:38 | RADIOLOGY IMAGING REPORT ---
[place] [facility] [place] Meggan Schroeder : 1970 MR: [id number] V: [id number] EXAM DATE: ORDERING PHYSICIAN: FUAD PINEDA TECHNOLOGIST: [place] [facility] [place]: Meggan Schroeder : 1970 Visit/Account:[id number] Date of Sevice: 04/20/2019 CT CHEST ABDOMEN PELVIS W/CON HISTORY: Restaging endometrial cancer TECHNIQUE: CT chest, abdomen and pelvis with intravenous contrast. Contiguous helical images was per formed from the lung apices to the symphysis pubis. One of the following dose optimization techniques was utilized in the performance of this exam: Autom ated exposure control; adjustment of the mA and/or kV according to the patient's size; or use of an i terative reconstruction technique. Specific details can be referenced in the facility's radiology C T exam operational policy. CONTRAST: 75 cc of Isovue-370 COMPARISON: CT scan 01/15/2018 FINDINGS: CHEST: Heart/vessels: Previously described pulmonary emboli have resolved allowing for differences in techn ique. Filling defect in the right ventricular apex has also resolved. Mediastinum: Negative. Lymph nodes: Slightly prominent right paratracheal lymph node image 17 measures 1.4 x 0.8 cm, stable Lungs/pleura: 4 mm right middle lobe micronodule is stable. No new or enlarging pulmonary nodules Bones/soft tissues: Negative. ABDOMEN/PELVIS: Hepatobiliary: There is fatty infiltration of the liver. Faint gallstone is noted in the gallbladde r. Spleen: Negative. Adrenals: Negative. Kidneys/: Uterus is absent. Pelvic mass is been removed Pancreas: Negative. GI: No bowel obstruction or focal inflammation. Appendix is normal. Vessels/spaces/nodes: The previously described right lower quadrant mass is no longer visualized. A scites has resolved. 3 mm lymph node or peritoneal nodule right lower quadrant image 153 can be foll owed. Otherwise, no concerning peritoneal nodules. Bones/soft tissues: Nodularity within the subcutaneous tissues tissues of the ventral wall is likely from subcutaneous injections. Small ventral hernia with fat in the defect is noted image 132. 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 Interval positive response to therapy. 2. No definitive metastatic disease to the chest. Stable 4 mm right middle lobe nodule. 3. Interval resolution of the previously described pulmonary emboli and right ventricular filling de fect. 4. No definitive recurrent or metastatic disease in the abdomen or pelvis. 3 mm right lower quadran t peritoneal nodule or lymph node is noted image 153 can be followed. Report Dictated By: Jim Shay MD at 04/20/2019 11:45 AM Report E-Signed By: Jim Shay MD at 04/20/2019 12:31 PM WSN:[email or web address]
== END ==
LOC: CT 00:52
PROVIDERS: ATTEND Physician Assistant
DX: C54.1 Malignant neoplasm of endometrium (principal)
CPT/HCPCS: 71260; 74177; Q9967

== ENCOUNTER 2019-05-19 16:07 | Outpatient (RCR) | payer MEDICAID ==
[2018-01-16 09:12] VITALS: BMI 39.3
--- NOTE | 2019-04-16 08:58 | PT INITIAL EVALUATION ---
MEDICAL DIAGNOSIS: Bilateral shoulder pain TREATMENT DIAGNOSIS: same DATE OF ONSET: 10/07/18 SUBJECTIVE: Meggan Schroeder presents to physical therapy with B shoulder pain that started a little while ago without a mechanics of injury. She reports that she had utero cancer and has been through multiple rounds of chemo and radiation along with a surgical procedure to remove the cancer and is currently in remission. Furthermore, she reports that she has a history of pulmonary embolisms around the same time her cancer was discovered. She reports that the last year with all the treatments and such has torn down her body and she is working on getting all her strength and function back to where it was prior to the cancer. She reports that her L shoulder is worse than her R shoulder and at rest it does not have too much pain but when she moves it the pain will reach around 5-6/10. She reports that she has not tried any other treatments prior to this session. Pain location is B shoulder and described as achy, sharp, and sore. Pain scale is 6 on a ten point pain scale. REHAB PROBLEM LIST: Increased Pain Decreased ROM Decreased Strength Decreased Endurance Decreased Balance Decreased Function Decreased ADL's Decreased Mobility Decreased Gait PREVIOUS MEDICAL HISTORY: See EMR OCCUPATION: Unemployed OBJECTIVE: Posture: She demonstrates B rounded shoulders, increased thoracic kyphosis, and decreased lumbar lordosis ROM: R shoulder AROM: flexion: 150 deg, scaption: 150 degrees, abduction: 120 degrees. ER and IR: WFL. L shoulder AROM: flexion: 100 degrees, scaption: 100 degrees, abduction: 95 degrees. IR and ER: WFL Strength: L flexion: strong and painful, L abduction and scaption: strong and painful. ER: strong and painful. IR: 5/5. R flexion: strong and painless, L abduction: strong and painless, L scaption: strong and painless. L IR: 5/5. L ER: strong and painful. B rhomboids and lower scapulae: 4-/5. Palpation: TTP: B anterior shoulders Special Tests: + for impingement: neers, yocu, and mendiola-arsenio, + for tendinopathy with pain with palpation, lengthening, and contraction. Mobility: Independent Gait: She demonstrated increase base of support, increased lateral movements, decreased velocity, and decreased pelvic mobility Balance: Will test in the future ASSESSMENT: Meggan will benefit from skilled physical therapy addressing her listed impairments to abolish pain, increased function, and return to prior level of function. Short Term Goals 5 weeks: Pt will be independent with her home exercise program. 5 weeks: Pt will demonstrate significant improvements in her RTC and periscapular musculature to improve function and QOL. 5 weeks: Pt will be able to return to functional activities without any B shoulder pain with those movements to improve function and QOL. Patient's Goals decrease shoulder pain PLAN: Patient to be seen for Manual Therapy/STM/MET Strengthening/condition Range of Motion Spinal Stabilization Work Hardening/Cond Stretching Iontophoresis Neuromuscular Re-ed Closed Chain Program Posture/Body mechanics Gait Trg/Balance Trg Home Exercise Program Therapeutic Activities 1-2x/week for 5 weeks If you have any questions, comments, or concerns about this report or plan, please contact me at . Thank you, Shailesh Marrufo, PT, DPT MTDD
[~2019-05-19 16:07] MED LIST changes: +COL625PT PO; -IOPAMIDOL 76% 100 ML INFUS BTL 100 ML ONE
--- NOTE | 2019-05-20 09:25 | PT PLAN OF CARE ---
Physician: Vane Gonsales MD Patient is being seen: 1x/week Therapist: Shailesh Marrufo, PT, DPT Medical Diagnosis: Bilateral shoulder pain Treatment Diagnosis: same Date of Onset: 10/07/18 Date of Initial Evaluation: 04/15/19 Date patient was last seen: 05/19/19 Number of treatments: 5 Number of cancellations/No shows: 0 INTERVENTIONS: Manual Therapy/STM/MET Strengthening/condition Range of Motion Spinal Stabilization Work Hardening/Cond Stretching Iontophoresis Neuromuscular Re-ed Closed Chain Program Posture/Body mechanics Gait Trg/Balance Trg Home Exercise Program Therapeutic Activities GOALS: 5 weeks: Pt will be independent with her home exercise program. MET 5 weeks: Pt will demonstrate significant improvements in her RTC and periscapular musculature to improve function and QOL. Improved 5 weeks: Pt will be able to return to functional activities without any B shoulder pain with those movements to improve function and QOL. Improved PATIENT'S GOAL: decrease shoulder pain Status of Patient's Goals: Progressed well Patient Compliance: Good Prognosis: Good Reasons for continuing therapy: This is a discharge note for Meggan Schroeder. She reports that she feels like she is making progress with her B shoulders. She reports that they feel a bit looser. She feels like her R shoulder has returned close to its prior level of function. However, she reports that her L shoulder continues to be stuck just at a higher range of motion than it used to be. She reports that she is not great at following through with her home exercise program. She demonstrates significant improvements with B shoulders PROM-AROM in all directions, increased RTC and periscapular muscle recruitment. Furthermore, her R shoulder demonstrated significant improvements in PROM-AROM with full ranges in all directions with normalized end feels; however, she continues to demonstrate decreased PROM-AROM in all directions due to shoulder dysfunction that will be correct if she continues to perform her home exercise consistently. She is independent on her home exercise program. As a result, of running out of visits, she will be discharged from PT to [facility]. Posture: She demonstrates B rounded shoulders, increased thoracic kyphosis, and decreased lumbar lordosis ROM: R shoulder AROM: flexion: 180 deg, scaption: 180 degrees, abduction: 180 degrees. ER and IR: WFL. L shoulder AROM: flexion: 150 degrees, scaption: 150 degrees, abduction: 120 degrees. IR and ER: WFL Strength: L flexion: strong and painful, L abduction and scaption: strong and painful. ER: strong and painful. IR: 5/5. R flexion: strong and painless, L abduction: strong and painless, L scaption: strong and painless. L IR: 5/5. L ER: strong and painful. B rhomboids and lower scapulae: 4/5. Palpation: TTP: B anterior shoulders Special Tests: + for impingement: neers, yocums, and maury-arsenio, + for tendinopathy with pain with palpation, lengthening, and contraction. Mobility: Independent If you have any questions, please contact me at [phone]. Thank you, Shailesh Marrufo, PT, DPT SAMANTHAD
[2019-05-25] MEDS ORDERED: DIPH-1 PO (09:13)
== END 2019-05-19 18:00 | disposition home or self-care (01) ==
LOC: PT 16:07
PROVIDERS: ATTEND Emergency Medicine
DX: M25.551 Pain in right hip (principal); M25.552 Pain in left hip; Z85.42 Personal history of malignant neoplasm of other parts of uterus; Z92.21 Personal history of antineoplastic chemotherapy; Z92.3 Personal history of irradiation; Z86.711 Personal history of pulmonary embolism
CPT/HCPCS: 97161